=== PATIENT | female | born 1965 | race Asian ===

== ENCOUNTER 2018-07-27 08:11 | Inpatient (IN) | payer OTHER ==
[~2018-07-27] VITALS: Ht 157.5 cm; Wt 70.3 kg
[2018-07-27] MEDS ORDERED: ONDANSETRON 4MG ODT PO STA (08:47)
[2018-07-27] MEDS ORDERED: MORPHINE SULFATE 4 MG/ML CPJ (NOT FOR IM USE) IV STA (08:47)
[2018-07-27] MEDS ORDERED: SODIUM CHLORIDE 0.9% 1,000 ML IV ONE (08:47)
[2018-07-27 09:07] LABS: HEMATOCRIT. 34.9 % (36.0-48.0); HEMOGLOBIN. 11.5 g/dL (12.0-16.0); MEAN CORPUSCULAR HEMOGLOBIN 25.2 pg (28.0-32.0); MEAN CORPUSCULAR VOLUME 76.8 fL (81.0-99.0); MEAN PLATELET VOLUME 7.3 fl (7.4-10.4); PLATELET 732 x1000/uL (130-400); RED BLOOD CELL COUNT 4.55 mill/uL (4.2-5.4); RED CELL DISTRIBUTION WIDTH 21.2 % (11.6-14.6)
[2018-07-27 09:12] LABS: CHLORIDE 108 mEq/L (98-107)
[2018-07-27] MEDS ORDERED: KETOROLAC 30MG/ML VIAL IV ONE (10:00)
[2018-07-27 10:12] LABS: NUCLEATED RED BLOOD CELLS 7 /100 WBC; PLATELET ESTIMATE INCREASED
[2018-07-27] MEDS ORDERED: HYDROXYUREA 500MG CAPSULE PO ONE (11:45)
[2018-07-27] MEDS ORDERED: MORPHINE SULFATE 4 MG/ML CPJ (NOT FOR IM USE) IV ONE (13:45)
[2018-07-27] MEDS ORDERED: DIPHENHYDRAMINE 50MG/ML VIAL IV PRN (16:45)
[2018-07-27] MEDS ORDERED: ACETAMINOPHEN 325MG TABLET PO PRN (16:45)
[2018-07-27] MEDS ORDERED: NA PHOS,M-B/NA PHOS,DI-BA ENEMA 118ML PR PRN (16:45)
[2018-07-27] MEDS ORDERED: IPRATROPIUM/ALBUTEROL 0.5-3(2.5)MG/3ML NEB INH PRN (16:45)
[2018-07-27] MEDS ORDERED: GUAIFENESIN 200MG/10ML SUGAR FREE UDC PO PRN (16:45)
[2018-07-27] MEDS ORDERED: DOCUSATE SODIUM 100MG CAPSULE PO PRN (16:45)
[2018-07-27] MEDS ORDERED: CLONIDINE 0.1MG TABLET PO PRN (16:45)
[2018-07-27] MEDS ORDERED: MAGNESIUM/ALUMINUM HYDROXIDE/SIMETHICONE 30ML UDC PO PRN (16:45)
[2018-07-27] MEDS ORDERED: ONDANSETRON HCL 4MG/2ML INJ IV PRN (16:45)
[2018-07-27] MEDS ORDERED: ACETAMINOPHEN 650MG SUPP PR PRN (16:45)
[2018-07-27] MEDS: SODIUM CHLORIDE 0.45% 1,000 ML IV SCH (16:45)
[2018-07-27 16:59] LABS: CLARITY URINE CLEAR (CLEAR); COLOR URINE YELLOW (YELLOW); KETONES URINE NEGATIVE (NEGATIVE); LEUKOCYTE ESTERASE URINE NEGATIVE (NEGATIVE); NITRITE URINE NEGATIVE (NEGATIVE); OCCULT BLOOD URINE NEGATIVE (NEGATIVE); PROTEIN URINE NEGATIVE (NEGATIVE); SPECIFIC GRAVITY URINE 1.063 (1.005-1.030); UROBILINOGEN URINE 0.2 E.U./dL (0.2-1.0)
[2018-07-27 17:10] LABS: *BARBITURATES SCREEN URINE NEGATIVE (NEGATIVE); *BENZODIAZEPINES SCREEN URINE NEGATIVE (NEGATIVE); *COCAINE SCREEN URINE NEGATIVE (NEGATIVE); CANNABINOID URINE SCREEN PRESUMTIVE POSITIVE (NEGATIVE); METHADONE URINE SCREEN NEGATIVE (NEGATIVE); OPIATES URINE SCREEN PRESUMTIVE POSITIVE (NEGATIVE); PHENCYCLIDINE URINE SCREEN NEGATIVE (NEGATIVE)
[2018-07-27 17:11] LABS: *AMPHETAMINES SCREEN URINE NEGATIVE (NEGATIVE)
[2018-07-27 17:17] LABS: BG BASE EXCESS -4.6 mmol/L (-2.0-2.0); BG BILEVEL POS AIRWAY PRESSURE 15/5; BG CARBOXYHEMOGLOBIN 0.3 % (0.5-1.5); BG DEOXYHEMOGLOBIN 1.3 % (0.0-5.0); BG FRACTION INSPIRED OXYGEN 40; BG HCO3 ACT 16.9 mmol/L (22.0-26.0); BG METHEMOGLOBIN 0.5 % (0.0-1.5); BG OXYGEN SATURATION 98.7 % (92.0-98.5); BG OXYHEMOGLOBIN 97.9 % (94.0-97.0); BG PCO2 21.8 mmHg (35.0-45.0); BG PH 7.507 (7.350-7.450); BG PO2 154.3 mmHg (75.0-100.0); BG SAMPLE SITE RIGHT BRACHIAL; BG TOTAL HEMOGLOBIN 11.1 g/dL (12.0-18.0); BG VENT MODE MASK - BIPAP
[2018-07-27] MEDS: HYDROCODONE/ACETAMINOPHEN 5/325MG TABLET PO PRN ×2 (17:27→23:51)
[2018-07-27] MEDS ORDERED: PIPERACILLIN/TAZ 3.375G PREMIX 50 ML IV SCH (17:30)
[2018-07-27 17:34] LABS: INR 1.1; PROTHROMBIN TIME 11.1 sec (9.1-11.1)
[2018-07-27] MEDS ORDERED: LORAZEPAM 2MG/ML CPJ IV PRN (18:30)
[2018-07-27] MEDS ORDERED: IPRATROPIUM/ALBUTEROL 0.5-3(2.5)MG/3ML NEB HHN ONE (18:45)
[2018-07-27] MEDS: IPRATROPIUM/ALBUTEROL 0.5-3(2.5)MG/3ML NEB INH SCH (21:35)
[2018-07-27 23:06] LABS: CREATINE KINASE 63 IU/L (26-192)
[2018-07-27 23:08] LABS: CREATINE KINASE MB FRACTION < 1.0 ng/mL (0.5-3.6)
[2018-07-28] MEDS: IPRATROPIUM/ALBUTEROL 0.5-3(2.5)MG/3ML NEB INH SCH ×5 (00:27→20:44)
[2018-07-28 05:36] LABS: HEMATOCRIT. 30.5 % (36.0-48.0); HEMOGLOBIN. 10.1 g/dL (12.0-16.0); MEAN CORPUSCULAR HEMOGLOBIN 25.1 pg (28.0-32.0); MEAN CORPUSCULAR VOLUME 76.3 fL (81.0-99.0); MEAN PLATELET VOLUME 7.1 fl (7.4-10.4); PLATELET 618 x1000/uL (130-400); RED CELL DISTRIBUTION WIDTH 21.4 % (11.6-14.6)
[2018-07-28 05:42] LABS: CHLORIDE 113 mEq/L (98-107)
[2018-07-28 05:50] LABS: LDL CHOLESTEROL 82 mg/dL (5-100)
[2018-07-28 05:51] LABS: CREATINE KINASE 61 IU/L (26-192); CREATINE KINASE MB FRACTION 1.1 ng/mL (0.5-3.6); HDL CHOLESTEROL 26 mg/dL (40-59); T4 FREE 1.44 ng/dL (0.76-1.46)
[2018-07-28 06:10] LABS: NUCLEATED RED BLOOD CELLS 2 /100 WBC; PLATELET ESTIMATE INCREASED
[2018-07-28] MEDS: HYDROCODONE/ACETAMINOPHEN 5/325MG TABLET PO PRN ×4 (06:58→21:40)
[2018-07-28] MEDS: LORAZEPAM 0.5MG TABLET PO PRN ×2 (09:10→19:10)
[2018-07-28] MEDS ORDERED: PIPERACILLIN/TAZ 3.375G PREMIX 50 ML IV SCH ×2 (09:23)
[2018-07-28] MEDS ORDERED: HYDROXYUREA 500MG CAPSULE PO SCH (09:43)
[2018-07-28] MEDS: HYDROXYUREA 500MG CAPSULE PO SCH ×2 (10:23→19:06)
[2018-07-28] MEDS ORDERED: ALLO100T MT (11:15)
[2018-07-28] MEDS ORDERED: FERR-71 MT (11:15)
[2018-07-28] MEDS ORDERED: ASPI-1158 MT (11:15)
[2018-07-28] MEDS ORDERED: LISI2.5T47 MT (11:15)
[2018-07-28] MEDS ORDERED: BOSU400T PO (11:15)
[2018-07-28] MEDS ORDERED: ALBU4TAB6 MT (11:15)
[2018-07-28] MEDS ORDERED: LEVO137T2 MT (11:15)
[2018-07-28 11:27] VITALS: BP 135/84
[2018-07-28] MEDS: PANTOPRAZOLE SODIUM 40 MG/VIAL IV SCH (12:18)
[2018-07-28] MEDS: NICOTINE 14MG PATCH TD SCH (12:18)
[2018-07-28] MEDS: ASPIRIN 81MG EC TABLET PO SCH (12:20)
[2018-07-28] MEDS: ENOXAPARIN 40MG/0.4ML SYR SUBCUT SCH (12:20)
[2018-07-28] MEDS ORDERED: VANCOMYCIN 1500MG in DEXTROSE 5% WATER 250ML IV SCH (13:00)
[2018-07-28] MEDS: SODIUM CHLORIDE 0.45% 1,000 ML IV SCH (13:55)
[2018-07-28] MEDS: PIPERACILLIN/TAZ 3.375G PREMIX 50 ML IV SCH ×2 (17:23→22:30)
[2018-07-28 18:20] LABS: BG BASE EXCESS -4.6 mmol/L (-2.0-2.0); BG CARBOXYHEMOGLOBIN 0.3 % (0.5-1.5); BG DEOXYHEMOGLOBIN 3.6 % (0.0-5.0); BG FRACTION INSPIRED OXYGEN 21; BG HCO3 ACT 18.3 mmol/L (22.0-26.0); BG METHEMOGLOBIN 0.4 % (0.0-1.5); BG OXYGEN SATURATION 96.4 % (92.0-98.5); BG OXYHEMOGLOBIN 95.7 % (94.0-97.0); BG PCO2 27.5 mmHg (35.0-45.0); BG PH 7.442 (7.350-7.450); BG SAMPLE SITE RIGHT RADIAL; BG TOTAL HEMOGLOBIN 11.1 g/dL (12.0-18.0); BG VENT MODE ROOM AIR
[2018-07-28 20:24] VITALS: BP 115/58
[2018-07-29 00:03] VITALS: BP 100/62
[2018-07-29] MEDS: VANCOMYCIN 1 G PREMIX 200 ML IV SCH ×2 (00:35→13:39)
[2018-07-29] MEDS: IPRATROPIUM/ALBUTEROL 0.5-3(2.5)MG/3ML NEB INH SCH ×5 (00:55→16:28)
[2018-07-29 04:00] VITALS: BP 130/59
[2018-07-29] MEDS: PIPERACILLIN/TAZ 3.375G PREMIX 50 ML IV SCH ×3 (04:40→17:33)
[2018-07-29] MEDS: HYDROCODONE/ACETAMINOPHEN 5/325MG TABLET PO PRN ×3 (04:41→17:36)
[2018-07-29 07:11] LABS: HEMATOCRIT 28.2 % (36.0-48.0); HEMOGLOBIN 9.3 g/dL (12.0-16.0); MEAN CORPUSCULAR HEMOGLOBIN 25.6 pg (28.0-32.0); MEAN CORPUSCULAR VOLUME 77.2 fL (81.0-99.0); PLATELET 558 x1000/uL (130-400); RED BLOOD CELL COUNT 3.65 mill/uL (4.2-5.4); RED CELL DISTRIBUTION WIDTH 21.8 % (11.6-14.6)
[2018-07-29 07:16] LABS: CHLORIDE 113 mEq/L (98-107)
[2018-07-29 08:00] VITALS: BP 120/64
[2018-07-29] MEDS: PANTOPRAZOLE SODIUM 40 MG/VIAL IV SCH (09:00)
[2018-07-29] MEDS: HYDROXYUREA 500MG CAPSULE PO SCH ×2 (09:00→17:36)
[2018-07-29] MEDS: NICOTINE 14MG PATCH TD SCH (09:00)
[2018-07-29] MEDS: ASPIRIN 81MG EC TABLET PO SCH (09:00)
[2018-07-29] MEDS: ENOXAPARIN 40MG/0.4ML SYR SUBCUT SCH (09:00)
[2018-07-29] MEDS: LORAZEPAM 0.5MG TABLET PO PRN ×2 (09:01→17:36)
[2018-07-29 12:00] VITALS: BP 112/65
[2018-07-29 16:00] VITALS: BP 111/65
[2018-07-29 17:59] VITALS: BP 111/65
[2018-07-30] MEDS ORDERED: LEVOTHYROXINE SODIUM 137MCG TABLET PO SCH (07:10)
[2018-07-30] MEDS ORDERED: ALLOPURINOL 300 MG TABLET PO SCH (09:00)
== END 2018-07-29 20:00 | disposition home or self-care (01) | DRG 841 ==
LOC: ER 08:11 → 8WST 12:11 → EDBEDREQTM 12:14 → EDBEDREQ 12:14 → CANRESERV 07-28 07:19 → EDRESERV 07-28 07:19 → ENRESERV 07-28 07:19 → EDBEDREQSVC 07-28 09:33 → ENRESERV 07-28 09:52
PROVIDERS: ADMIT Internal Medicine; ATTEND Internal Medicine
PROC: 5A09357 Assistance with Respiratory Ventilation, Less than 24 Consecutive Hours, Continuous Positive Airway Pressure (ICD-10-PCS; principal; 2018-07-27)
DX: C92.10 Chronic myeloid leukemia, BCR/ABL-positive, not having achieved remission (principal); E87.3 Alkalosis; R06.03 Acute respiratory distress; R16.2 Hepatomegaly with splenomegaly, not elsewhere classified; E86.0 Dehydration; D64.9 Anemia, unspecified; E11.65 Type 2 diabetes mellitus with hyperglycemia; D49.0 Neoplasm of unspecified behavior of digestive system; R14.0 Abdominal distension (gaseous); F17.200 Nicotine dependence, unspecified, uncomplicated; Z90.49 Acquired absence of other specified parts of digestive tract; Z90.710 Acquired absence of both cervix and uterus; Z88.8 Allergy status to other drugs, medicaments and biological substances
CPT/HCPCS: 36415; 36600; 71045; 71275; 74177; 80048; 80061; 80305; 82375; 82550; 82553; 82805; 83036; 83880; 84439; 84443; 84484; 85027; 93005; 93306; 93970; 94640; 96365; 96375; 97162; 99291; C9113; J1650; J1885; J2060; J2270; J2543; J3370; J7030; J7060; J7620; Q0162